=== PATIENT | female | born 1965 | race Caucasian/White ===

== ENCOUNTER 2017-12-12 00:36 | Emergency (ER) | payer MEDICAID, OTHER ==
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
[2017-12-12 02:14] VITALS: BP 137/90
== END 2017-12-12 02:14 | disposition home or self-care (01) ==
DX: F43.10 Post-traumatic stress disorder, unspecified (principal); G47.00 Insomnia, unspecified; F41.9 Anxiety disorder, unspecified; F32.9 Major depressive disorder, single episode, unspecified

== ENCOUNTER 2018-01-19 22:29 | Emergency (ER) | payer MEDICAID, OTHER ==
--- NOTE | 2018-01-19 23:01 | EDPHY ---
H & P Stated Complaint: mental health eval no SI or HI "feeling hopeless" and PTSD Source: Patient Exam Limitations: No limitations - Personal History LMP (Females 10-55): IUD In Place Current Tetanus/Diphtheria Vaccine: Yes Current Tetanus Diphtheria and Acellular Pertussis (TDAP): Yes Tetanus Vaccine Date: <10 years - Medical/Surgical History Hx Asthma: Yes Hx Chronic Respiratory Disease: No Hx Diabetes: No Hx Cardiac Disease: No Hx Renal Disease: No Hx Cirrhosis: No Hx Alcoholism: No Hx HIV/AIDS: No Hx Splenectomy or Spleen Trauma: No Other PMH: PTSD, anxiety, depression, stress asthma, - Social History Smoking Status: Never smoked Time Seen by Provider: 01/19/18 22:44 HPI/ROS: HPI: This is a 52-year-old female who presents with Chief Complaint: mental health eval no SI or HI "feeling hopeless" and PTSD Location: psych Quality: Hopeless Duration: 1 week Signs and Symptoms: no auditory hallucinations, no visual hallucinations, no suicidal ideation with a plan, no homicidal ideation, none paranoia Timing: acute on chronic Severity: Severe Context: Patient has a history of PTSD, severe generalized anxiety disorder, major depression presents voluntarily to the emergency room with complaints of severe debilitating anxiety, posttraumatic stress disorder and feeling hopeless. Patient spent 1 month in [facility] for daily counseling. She was discharged 1 week ago and saw her therapist the next day. Therapist did some regression work that the patient feels made her go back to [facility] [place]. Patient is unable to sleep in her house and is sleeping in her car due to extreme anxiety, does not feel safe to be alone or in her home , is unable to function and perform daily activities. IUD in place. Patient has been to respite care to times. Spoke with Jesse from [facility] who believes that she is no longer a candidate for respite care and needs inpatient treatment. Modifying Factors: Taking Wellbutrin, trazodone, Ativan Comment: ROS: A comprehensive 10 system review of systems is otherwise negative aside from elements mentioned in the history of present illness. MEDICAL/SURGICAL/SOCIAL HISTORY: Medical history: PTSD, anxiety, depression, stress asthma Surgical history: Denies Social history: Nonsmoker. Denies drug and alcohol use. Family history noncontributory. CONSTITUTIONAL: Extremely anxious, polite and cooperative, awake and alert, no obvious distress HEENT: Atraumatic and normocephalic, PERRL, EOMI. Nares patent; no rhinorrhea; no nasal mucosal edema. Tympanic membranes clear. Oropharynx clear, no exudate and moist pink mucosa. Airway patent. No lymphadenopathy. No meningismus. Cardiovascular: Normal S1/S2, tachycardia, regular rhythm, without murmur rub or gallop. PULMONARY/CHEST: Symmetrical and nontender. Clear to auscultation bilaterally. Good air movement. No accessory muscle usage. ABDOMEN: Soft, nondistended, nontender, no rebound, no guarding, no peritoneal signs, no masses or organomegaly. No CVAT. EXTREMITIES: 2/2 pulses, strength 5/5, no deformities, no clubbing, no cyanosis or edema. NEUROLOGICAL: no focal neuro deficits. GCS 15. SKIN: Warm and dry, no erythema. no rash. Good capillary refill. PSYCH: Fair eye contact, + flight of ideas, disorganized thought process, fair insight and judgment, no auditory hallucinations, no visual hallucinations , no suicidal ideation with a plan, no homicidal ideation, none paranoia ([place]) Constitutional: Initial Vital Signs Temperature (C) 36.6 C 01/19/18 22:34 Heart Rate 109 H 01/19/18 22:34 Respiratory Rate 16 01/19/18 22:34 Blood Pressure 126/87 H 01/19/18 22:34 O2 Sat (%) 92 01/19/18 22:34 O2 Delivery Mode Room Air Allergies/Adverse Reactions: No Known Allergies Allergy (Verified 01/19/18 22:38) Home Medications: Medication Instructions Recorded LORAZEPAM 12/12/17 Sertraline HCl 12/12/17 buPROPion 12/12/17 traZODone 12/12/17 Acyclovir 01/19/18 Estradiol 01/19/18 Optichamber Olya 01/19/18 Prazosin HCl 01/19/18 Proair Hfa 01/19/18 QUEtiapine FUMARATE 01/19/18 ZOLPIDEM TARTRATE 01/19/18 Medical Decision Making ED Course/Re-evaluation: Vital signs reviewed and show mild tachycardia upon arrival. Called to [facility]. They believe that patient is gravely disabled and needs to be have inpatient psychiatric hospitalization. Patient is currently calm and cooperative. M1 hold placed for patient being gravely disabled. Labs and UDS ordered. Home medications ordered. 0000: Labs reviewed and grossly unremarkable. Urine drug screen negative. Ethanol negative. 0010: End of shift. Signed over to Dr. Bruno pending mental health evaluation and final disposition. This patient was seen under the supervision of my secondary supervising physician. I evaluated care for this patient independently. Discussed this patient with Dr. Bruno. (Callie Garcia) 0700: Signed over at shift change to Dr. Lee. Patient on M1 home. Extensive history of PTSD. Depression anxiety. Needs evaluation this morning. (Alexey Bruno) 0 700: Patient is signed out to me at change of shift by Dr. Bruno. The patient is awaiting evaluation. Patient is stable. 1010: I spoke with [facility]. They completed their evaluation. They did not feel the patient was gravely disabled. They felt the patient's hold be lifted and she could be discharged. They arrange close follow-up. Patient felt comfortable with this plan. (Jocelyn Coughlin) Differential Diagnosis: Differential diagnosis includes but is not limited to posttraumatic stress disorder, severe generalized anxiety disorder, major depression. (Callie Garcia) - Data Points Laboratory Results: Laboratory Results 01/19/18 23:43 01/19/18 23:43 01/19/18 01/19/18 01/19/18 23:45 23:43 23:43 WBC RBC Hgb Hct MCV MCH MCHC RDW Plt Count MPV Neut % (Auto) Lymph % (Auto) [place] % (Auto) Eos % (Auto) Baso % (Auto) Nucleat RBC Rel Count Absolute Neuts (auto) Absolute Lymphs (auto) Absolute Monos (auto) Absolute Eos (auto) Absolute Basos (auto) Absolute Nucleated RBC Immature Gran % Immature Gran # Sodium 137 mEq/L mEq/L (135-145) Potassium 4.0 mEq/L mEq/L (3.3-5.0) Chloride 103 mEq/L mEq/L (97-110) Carbon Dioxide 22 mEq/l mEq/l (22-31) Anion Gap 12 mEq/L mEq/L (6-14) BUN 12 mg/dL mg/dL (7-23) Creatinine 0.9 mg/dL mg/dL (0.6-1.0) Estimated GFR > 60 Glucose 111 mg/dL H mg/dL (70-100) Calcium 9.8 mg/dL mg/dL (8.5-10.4) Beta HCG, Qual NEGATIVE Urine Opiates Screen NEGATIVE (NEGATIVE) Urine Barbiturates NEGATIVE (NEGATIVE) Ur Phencyclidine Scrn NEGATIVE (NEGATIVE) Ur Amphetamine Screen NEGATIVE (NEGATIVE) U Benzodiazepines Scrn NEGATIVE (NEGATIVE) Urine Cocaine Screen NEGATIVE (NEGATIVE) U Marijuana (THC) Screen NEGATIVE (NEGATIVE) Ethyl Alcohol < 10 mg/dL mg/dL (0-10) 01/19/18 23:43 WBC 10.21 10^3/uL H 10^3/uL (3.80-9.50) RBC 4.74 10^6/uL 10^6/uL (4.18-5.33) Hgb 13.9 g/dL g/dL (12.6-16.3) Hct 42.2 % % (38.0-47.0) MCV 89.0 fL fL (81.5-99.8) MCH 29.3 pg pg (27.9-34.1) MCHC 32.9 g/dL g/dL (32.4-36.7) RDW 13.8 % % (11.5-15.2) Plt Count 302 10^3/uL 10^3/uL (150-400) MPV 9.3 fL fL (8.7-11.7) Neut % (Auto) 65.5 % % (39.3-74.2) Lymph % (Auto) 22.6 % % (15.0-45.0) [place] % (Auto) 8.9 % % (4.5-13.0) Eos % (Auto) 2.3 % % (0.6-7.6) Baso % (Auto) 0.4 % % (0.3-1.7) Nucleat RBC Rel Count 0.0 % % (0.0-0.2) Absolute Neuts (auto) 6.69 10^3/uL H 10^3/uL (1.70-6.50) Absolute Lymphs (auto) 2.31 10^3/uL 10^3/uL (1.00-3.00) Absolute Monos (auto) 0.91 10^3/uL H 10^3/uL (0.30-0.80) Absolute Eos (auto) 0.23 10^3/uL 10^3/uL (0.03-0.40) Absolute Basos (auto) 0.04 10^3/uL 10^3/uL (0.02-0.10) Absolute Nucleated RBC 0.00 10^3/uL 10^3/uL (0-0.01) Immature Gran % 0.3 % % (0.0-1.1) Immature Gran # 0.03 10^3/uL 10^3/uL (0.00-0.10) Sodium Potassium Chloride Carbon Dioxide Anion Gap BUN Creatinine Estimated GFR Glucose Calcium Beta HCG, Qual Urine Opiates Screen Urine Barbiturates Ur Phencyclidine Scrn Ur Amphetamine Screen U Benzodiazepines Scrn Urine Cocaine Screen U Marijuana (THC) Screen Ethyl Alcohol Medications Given: Gabapentin (Neurontin) 600 mg PO TID ANIA Stop: 07/19/18 00:14 Last Admin: 01/20/18 00:16 Dose: 600 mg Prazosin HCl (Minipress) 10 mg PO BID ANIA Stop: 07/18/18 23:29 Last Admin: 01/20/18 00:16 Dose: 10 mg Zolpidem Tartrate (Ambien) 10 mg PO HS PRN PRN Reason: Sleep/Insomnia Stop: 07/18/18 23:27 Last Admin: 01/20/18 00:16 Dose: 10 mg Discontinued Medications Quetiapine Fumarate (Seroquel) 200 mg PO ONCE ONE Stop: 01/19/18 23:29 Last Admin: 01/20/18 00:16 Dose: 200 mg Trazodone HCl (Trazodone) 100 mg PO EDNOW ONE Stop: 01/19/18 23:46 Last Admin: 01/20/18 00:16 Dose: 100 mg Departure - Departure Disposition: Home, Routine, Self-Care Clinical Impression: PTSD (post-traumatic stress disorder), Severe anxiety with panic Depression, major, severe recurrence Qualifiers: Psychotic features: without psychotic features Qualified Code(s): F33.2 - Major depressive disorder, recurrent severe without psychotic features Condition: Fair Instructions: Post Traumatic Stress Disorder (ED), Anxiety (ED) Additional Instructions: Return with worsening symptoms or any other concerns. Referrals: Keyshawn Mccarthy MD [Primary Care Provider] - 5-7 days, call for appt.
[2018-01-19] MEDS ORDERED: ZOLPIDEM TARTRATE 5 MG TAB PO PRN (23:28)
[2018-01-19] MEDS ORDERED: QUEtiapine FUMARATE 200 MG TAB PO ONE (23:28)
[2018-01-19] MEDS ORDERED: traZODone 100 MG TAB PO ONE (23:45)
[2018-01-19 23:51] LABS: PLATELET COUNT 302 10^3/uL (150-400)
[2018-01-20] MEDS: GABAPENTIN 300 MG CAP PO SCH ×2 (00:16→10:25)
[2018-01-20] MEDS: PRAZOSIN HCL 5 MG CAP PO SCH ×2 (00:16→10:26)
[2018-01-20] MEDS ORDERED: ZOLPIDEM TARTRATE 5 MG TAB PO PRN (00:30)
[2018-01-20 10:51] VITALS: BP 120/74
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
--- NOTE | 2018-01-20 12:27 | ASMTTCLDSP ---
TLC Discharge Disposition Disposition: Answers: Discharge If Answers: Yes DISCHARGED: Patient/family given suicide hotline info & SAMHSA brochure? Disposition Notes: Notes: Pt stated commitment or ability to keep self safe, denied thoughts of self harm or harm to others. Pt expressed a desire to f/u with [facility] therapist appointment today at 1 pm with Teodora Michael. Pt was given local hotline information and SAMHSA brochure After an Attempt. 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 Discharge Concerns/Recommendations: Notes: In consultation with [facility] ED physician, Jocelyn Coughlin MD, Dr. Coughlin concurred that pt does not appear to meet 27-65 criteria requiring psychiatric hospitalization as pt does not appear to be an imminent risk of harm to self/others/gravely disabled due to a mental illness condition. Dr. Coughlin provided verbal order read back vacating M1 hold at 1010 hrs. Was patient given the Answers: Not applicable Inpatient Behavioral Health Prohibited Belongings List while in the ED? Psychiatrist vacating M1 Jocelyn Coughlin MD Hold: Date and time M1 hold 01/20/2018 10:10 AM vacated (time format is hh:mm): Type of Hold: Answers: M1/72-hour Hold Hold initiated by: Answers: ED Physician Date Signed: 01/20/2018 12:26 PM Electronically Signed By:Urbano Rosenberg
== END 2018-01-20 10:52 | disposition home or self-care (01) ==
DX: F33.2 Major depressive disorder, recurrent severe without psychotic features (principal); F41.0 Panic disorder [episodic paroxysmal anxiety]; F43.10 Post-traumatic stress disorder, unspecified
CPT/HCPCS: 80305; G0480

== ENCOUNTER 2018-03-11 12:26 | Emergency (ER) | payer MEDICAID ==
[2018-03-11 12:32] VITALS: BP 145/87
--- NOTE | 2018-03-11 12:53 | EDPHY ---
H & P Stated Complaint: Wants MH eval;in between therapists;denies SI/HI;feels "ungrounded" Time Seen by Provider: 03/11/18 12:36 HPI/ROS: CHIEF COMPLAINT: "I think I need a mental health evaluation" HISTORY OF PRESENT ILLNESS: 52-year-old homeless female, living her vehicle, history of PTSD, drove herself to the ER requesting mental health evaluation. Denies suicidal homicidal ideation. Notes increasing anxiety specifically after she wakes in the morning. Difficulty sleeping. No self-injurious behavior. Since tissue benefit from inpatient therapy. Feels that she is able to care for self. PHYSICAL EXAM (Prior to examination, patient consented to physical exam, hands were washed and my usual and customary physical exam procedures followed) 1) GENERAL: Well-developed, well-nourished, alert and oriented. Appears to be in no acute distress. Smiling, calm, cooperative 2) HEAD: Normocephalic 3) HEENT: sclera anicteric 4) LUNGS: Breathing comfortably. - Personal History LMP (Females 10-55): Post Menopausal Current Tetanus Diphtheria and Acellular Pertussis (TDAP): Yes Tetanus Vaccine Date: <10 years - Medical/Surgical History Hx Asthma: Yes Hx Chronic Respiratory Disease: No Hx Diabetes: No Hx Cardiac Disease: No Hx Renal Disease: No Hx Cirrhosis: No Hx Alcoholism: No Hx HIV/AIDS: No Hx Splenectomy or Spleen Trauma: No Other PMH: PTSD, anxiety, depression, stress asthma, - Social History Smoking Status: Never smoked Constitutional: Initial Vital Signs Temperature (C) 36.6 C 03/11/18 12:27 Heart Rate 92 03/11/18 12:27 Respiratory Rate 18 03/11/18 12:27 Blood Pressure 145/87 H 03/11/18 12:27 O2 Sat (%) 96 03/11/18 12:27 O2 Delivery Mode Room Air Allergies/Adverse Reactions: No Known Allergies Allergy (Verified 03/11/18 12:27) Home Medications: Medication Instructions Recorded LORAZEPAM 12/12/17 Sertraline HCl 12/12/17 buPROPion 12/12/17 traZODone 12/12/17 Acyclovir 01/19/18 Estradiol 01/19/18 Prazosin HCl 01/19/18 QUEtiapine FUMARATE 01/19/18 ZOLPIDEM TARTRATE 01/19/18 Medical Decision Making ED Course/Re-evaluation: 12:51 p.m.: At this time I do not think patient meets criteria for an M1 hold, she is not endorse suicidal or homicidal ideation. States that she would like a place that she can sleep and get counseling. Notes they trouble with sleeping in her car. I have recommend patient go to the mental health crisis Center [address]. She drove herself to the ER and feels comfortable driving herself to this location. Given my usual and customary psychiatric precautions instructions. Care of patient under supervision of secondary supervising physician Dr Evans Departure - Departure Disposition: Home, Routine, Self-Care Clinical Impression: Homeless single person, Post traumatic stress disorder (PTSD) Condition: Good Instructions: Post Traumatic Stress Disorder (ED) Additional Instructions: Return to the ER immediately if you experience thoughts of hurting yourself, thoughts of hurting other people, thoughts of killing other people or killing yourself. Referrals: [facility] [Clinic] - 03/11/18 1:00 pm (correct address is: [address] [place] [address])
== END 2018-03-11 13:00 | disposition home or self-care (01) ==
DX: F43.10 Post-traumatic stress disorder, unspecified (principal); F32.9 Major depressive disorder, single episode, unspecified; F41.9 Anxiety disorder, unspecified; Z59.0 Homelessness

== ENCOUNTER 2018-03-19 00:22 | Inpatient (IN) | payer MEDICAID, OTHER ==
--- NOTE | 2018-03-19 00:49 | EDPHY ---
H & P Stated Complaint: increased anxiety/depression, not wanting to live - Personal History Current Tetanus/Diphtheria Vaccine: Yes Current Tetanus Diphtheria and Acellular Pertussis (TDAP): Yes Tetanus Vaccine Date: <10 years - Medical/Surgical History Hx Asthma: Yes Hx Chronic Respiratory Disease: No Hx Diabetes: No Hx Cardiac Disease: No Hx Renal Disease: No Hx Cirrhosis: No Hx Alcoholism: No Hx HIV/AIDS: No Hx Splenectomy or Spleen Trauma: No Other PMH: PTSD, anxiety, depression, stress asthma, - Social History Smoking Status: Never smoked Time Seen by Provider: 03/19/18 00:31 HPI/ROS: Chief Complaint: PTSD, hopeless HPI: 52-year-old woman with a history of anxiety, depression, PTSD. Patient is feeling increasingly hopeless. She is not want live any longer. She does not have active suicidal ideation or plan. She was recently seen at crisis Center and they did not feel that she was suitable for inpatient admission. Patient states she is feeling worse. She has been compliant with medications. Denies any hallucinations. She has been staying at her home but has a lot of triggers there for PTSD. She lives alone. She feels unsafe but does not have any active plans at this time. ROS: 10 systems were reviewed and were negative except those elements noted in the HPI. PMH: PTSD, depression, chronic back pain Social History: No smoking, no alcohol, no recreational drug use Family History: non-contributory Physical Exam: Gen: Awake, Alert, No Distress HEENT: Nose: no rhinorrhea Eyes: PERRLA, EOMI Mouth: Moist mucosa Neck: Supple, no JVD Chest: nontender, lungs clear to auscultation Heart: S1, S2 normal, no murmur Abd: Soft, non-tender, no guarding Back: no CVA tenderness, no midline tenderness Ext: no edema, non-tender Skin: no rash Neuro: CN II-XII intact, Sensation grossly intact, Strength 5/5 in bilateral upper and lower extremities (Dat Cardenas) Constitutional: Initial Vital Signs Temperature (C) 36.4 C 03/19/18 00:27 Heart Rate 82 03/19/18 00:27 Respiratory Rate 20 03/19/18 00:27 Blood Pressure 129/86 H 03/19/18 00:27 O2 Sat (%) 93 03/19/18 00:27 O2 Delivery Mode Room Air Allergies/Adverse Reactions: No Known Allergies Allergy (Verified 03/19/18 00:25) Home Medications: Medication Instructions Recorded LORAZEPAM 12/12/17 Sertraline HCl 12/12/17 buPROPion 12/12/17 traZODone 12/12/17 Acyclovir 01/19/18 Estradiol 01/19/18 Prazosin HCl 01/19/18 QUEtiapine FUMARATE 01/19/18 ZOLPIDEM TARTRATE 01/19/18 Medical Decision Making ED Course/Re-evaluation: 52-year-old female with a history of PTSD and depression presenting with concerns about her safety although she is not actively suicidal. [facility] but feels that her symptoms are worsening and is concerned about being home. She is requesting mental health evaluation. Will medically clear and plan for evaluation in the morning. Patient has been medically cleared. Patient is signed out to Dr. Evans pending mental health evaluation. (Dat Cardenas) Other Provider: Patient signed out to ct at 0700 pending mental health evaluation. Patient is not on M1 hold at this time secondary to not meeting criteria. 1112: Patient has been accepted for admission to [facility]. (Sathya Evans) - Data Points Laboratory Results: Laboratory Results 03/19/18 01:15 03/19/18 01:15 03/19/18 03/19/18 03/19/18 01:21 01:15 01:15 WBC RBC Hgb Hct MCV MCH MCHC RDW Plt Count MPV Neut % (Auto) Lymph % (Auto) [place] % (Auto) Eos % (Auto) Baso % (Auto) Nucleat RBC Rel Count Absolute Neuts (auto) Absolute Lymphs (auto) Absolute Monos (auto) Absolute Eos (auto) Absolute Basos (auto) Absolute Nucleated RBC Immature Gran % Immature Gran # Sodium 138 mEq/L mEq/L (135-145) Potassium 4.3 mEq/L mEq/L (3.5-5.2) Chloride 105 mEq/L mEq/L (97-110) Carbon Dioxide 22 mEq/l mEq/l (22-31) Anion Gap 11 mEq/L mEq/L (6-14) BUN 17 mg/dL mg/dL (7-23) Creatinine 0.8 mg/dL mg/dL (0.6-1.0) Estimated GFR > 60 Glucose 91 mg/dL mg/dL (70-100) Calcium 9.5 mg/dL mg/dL (8.5-10.4) Beta HCG, Qual NEGATIVE Urine Opiates Screen NEGATIVE (NEGATIVE) Urine Barbiturates NEGATIVE (NEGATIVE) Ur Phencyclidine Scrn NEGATIVE (NEGATIVE) Ur Amphetamine Screen NEGATIVE (NEGATIVE) U Benzodiazepines Scrn NON-NEGATIVE H (NEGATIVE) Urine Cocaine Screen NEGATIVE (NEGATIVE) U Marijuana (THC) Screen NEGATIVE (NEGATIVE) Ethyl Alcohol < 10 mg/dL mg/dL (0-10) 03/19/18 01:15 WBC 12.16 10^3/uL H 10^3/uL (3.80-9.50) RBC 5.00 10^6/uL 10^6/uL (4.18-5.33) Hgb 15.0 g/dL g/dL (12.6-16.3) Hct 45.7 % % (38.0-47.0) MCV 91.4 fL fL (81.5-99.8) MCH 30.0 pg pg (27.9-34.1) MCHC 32.8 g/dL g/dL (32.4-36.7) RDW 13.5 % % (11.5-15.2) Plt Count 305 10^3/uL 10^3/uL (150-400) MPV 9.3 fL fL (8.7-11.7) Neut % (Auto) 59.8 % % (39.3-74.2) Lymph % (Auto) 28.4 % % (15.0-45.0) [place] % (Auto) 8.1 % % (4.5-13.0) Eos % (Auto) 2.6 % % (0.6-7.6) Baso % (Auto) 0.7 % % (0.3-1.7) Nucleat RBC Rel Count 0.0 % % (0.0-0.2) Absolute Neuts (auto) 7.28 10^3/uL H 10^3/uL (1.70-6.50) Absolute Lymphs (auto) 3.45 10^3/uL H 10^3/uL (1.00-3.00) Absolute Monos (auto) 0.98 10^3/uL H 10^3/uL (0.30-0.80) Absolute Eos (auto) 0.32 10^3/uL 10^3/uL (0.03-0.40) Absolute Basos (auto) 0.08 10^3/uL 10^3/uL (0.02-0.10) Absolute Nucleated RBC 0.00 10^3/uL 10^3/uL (0-0.01) Immature Gran % 0.4 % % (0.0-1.1) Immature Gran # 0.05 10^3/uL 10^3/uL (0.00-0.10) Sodium Potassium Chloride Carbon Dioxide Anion Gap BUN Creatinine Estimated GFR Glucose Calcium Beta HCG, Qual Urine Opiates Screen Urine Barbiturates Ur Phencyclidine Scrn Ur Amphetamine Screen U Benzodiazepines Scrn Urine Cocaine Screen U Marijuana (THC) Screen Ethyl Alcohol Departure - Departure Disposition: [facility] IP Clinical Impression: Suicidal ideation Condition: Fair Referrals: Keyshawn Mccarthy MD [Primary Care Provider] - As per Instructions
[2018-03-19] MEDS ORDERED: SKIN ADHESIVE (DERMABOND) 1 EACH TP ONE (01:13)
[2018-03-19 01:26] LABS: PLATELET COUNT 305 10^3/uL (150-400)
--- NOTE | 2018-03-19 12:28 | PDCONSULT ---
Field Staff Note: MEDICINE H&P Chief Complaint: hopelessness History of Present Illness: 52yo F with depression, anxiety, PTSD presents with feelings of increasing hopelessness. She does not have any active suicidal ideation or plan but her mood has been very poor. She has been taking her anti- depressants. She was recently seen at the Crisis Center but they didn't feel that she warranted inpatient admission. She feels unsafe. She was not placed in an M1 hold but voluntarily agrees to admission to [facility]. She reports occasionally using her inhaler for her asthma but no shortness of breath, cough , or fevers recently. Otherwise denies any localizing infectious symptoms. Past Medical History: as stated above in addition to uterine fibroids, osteoarthritis (knees, lower back), asthma Past Surgical History: partial hysterectomy Medications: Please refer to EMR. Allergies: NKDA Social History: Denies etoh, tobacco, illicits. Lives alone in [place]. Family History: non-pertinent ROS: 12 point ROS negative otherwise than stated in HPI Vitals: Reviewed, afebrile and normotensive. Physical Exam: Gen - no distress; HEENT - anicteric sclera; Neck - no adenopathy ; CV - rrr without m/r/g, no leg edema; Lungs - ctab, no wheezes; Abd - soft, nt , nd; MSK - no joint swelling or redness; Neuro - no focal deficits; Psych - pleasant Labs: Reviewed, WBC 12k, BMP normal, beta HCG negative, utox + benzos, etoh negative Assessment/Plan: 1. Depression, anxiety, PTSD: Being admitted to [facility] for inpatient psychiatric management. She is not on an M1 hold as this is voluntary. 2. Asthma: No acute flare. This is mild and intermittent at baseline. Would continue proair inhaler QID PRN. Will also make available mucinex PRN. 3. Osteoarthritis: Not on opioids. Recommend tylenol or ibuprofen PRN. Dispo: Admit to inpatient psych. Please page internal medicine with any additional questions or concerns.
[2018-03-19] MEDS ORDERED: guaiFENesin 600 MG TAB.ER PO PRN ×2 (12:31→14:57)
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
--- NOTE | 2018-03-19 12:57 | ASMTTCLDSP ---
[facility] Discharge Disposition Disposition: Answers: Admit Discharge Concerns/Recommendations: Notes: In consultation with [facility] ED physician,Dr Cardenas and on-call psychiatrist, Dr Frias , both concurred that Pt does appear to meet criteria for a psychiatric hospitalization due to a mental illness condition. Was patient given the Answers: Yes Inpatient [facility] Prohibited Belongings List while in the ED? For inpatient Dr Rodriguez MD admission, the following psychiatrist agreed to accept patient for admission to Behavioral Health ([facility]): Date Signed: 03/19/2018 12:57 PM Electronically Signed By:Enedina Bateman
[2018-03-19] MEDS ORDERED: OLANZapine DISINTEGR 5 MG TAB PO PRN (16:13)
[2018-03-19] MEDS ORDERED: NICOTINE POLACRILEX 2 MG GUM B PRN (16:13)
[2018-03-19] MEDS ORDERED: MAGNESIUM HYDROXIDE 30 ML UDCUP PO PRN (16:13)
[2018-03-19] MEDS ORDERED: LORazepam 1 MG TAB PO PRN (16:13)
[2018-03-19] MEDS ORDERED: ACETAMINOPHEN 325 MG TAB PO PRN (16:13)
[2018-03-19] MEDS ORDERED: MAG HYDROX/AL HYDROX/SIMETH 30 ML UDCUP PO PRN (16:13)
[2018-03-19] MEDS ORDERED: IBUPROFEN 200 MG TAB PO PRN (16:18)
[2018-03-19] MEDS ORDERED: hydrOXYzine HCL 25 MG TAB PO PRN (16:19)
[2018-03-19] MEDS: GABAPENTIN 300 MG CAP PO SCH (21:56)
[2018-03-19] MEDS: PRAZOSIN HCL 5 MG CAP PO SCH (21:56)
[2018-03-19] MEDS: ZOLPIDEM TARTRATE 5 MG TAB PO PRN (21:56)
[2018-03-19] MEDS: QUEtiapine FUMARATE 100 MG TAB PO SCH (21:56)
[2018-03-19] MEDS: traZODone 100 MG TAB PO PRN (21:56)
[2018-03-20] MEDS: SERTRALINE HCL 100 MG TAB PO SCH (08:29)
[2018-03-20] MEDS: GABAPENTIN 300 MG CAP PO SCH ×3 (08:29→20:27)
[2018-03-20] MEDS: LORazepam 1 MG TAB PO PRN ×3 (09:04→23:28)
--- NOTE | 2018-03-20 09:44 | PDMN ---
Medical Necessity Medical necessity: [facility] [id number] Posttraumatic Stress Disorder, Adult: Inpatient Care, 3days: 52 yo presents w/ exacerbation of PTSD and persistent depressive disorder (dysthymia), admit to IP BEH unit
[2018-03-20] MEDS ORDERED: ACYCLOVIR 400 MG TAB PO PRN (12:54)
[2018-03-20] MEDS ORDERED: BISACODYL 5 MG EC TAB PO PRN (12:54)
[2018-03-20] MEDS ORDERED: ALBUTEROL 60 PUFFS/8 GM MDI IH PRN (13:15)
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
--- NOTE | 2018-03-20 15:51 | ASMTCMCOM ---
CM Note CM Note Notes: Pt. requested to speak with CC. Pt. stated she is upset with the weekend MD for not prescribing her medications how they were prior to her admission. Pt. stated she is also upset she is on a suicide precaution, stating "I'm not suicidal. I'm pissed". Pt. stated she has called and left a message with the Patient Back Up Scan Coordinator about the MD. Pt. stated she does not want anything about being suicidal in her chart. Pt. stated "I never actually wanted to hurt a doctor before, but I want to slap him". 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 Pt. stated she does not believe it is healthy for the MD to change her medications as he did. Date Signed: 03/20/2018 03:51 PM Electronically Signed By:Joanna Watson
[2018-03-20] MEDS: [UNRECOGNIZED DRUG - OTHER] PO SCH ×2 (15:56→17:07)
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
[2018-03-20] MEDS: traZODone 100 MG TAB PO PRN (20:26)
[2018-03-20] MEDS: ZOLPIDEM TARTRATE 5 MG TAB PO PRN (20:26)
[2018-03-20] MEDS: QUEtiapine FUMARATE 100 MG TAB PO SCH (20:27)
[2018-03-20] MEDS: PRAZOSIN HCL 5 MG CAP PO SCH (20:27)
[2018-03-21 06:43] VITALS: BP 120/65
[2018-03-21] MEDS: [UNRECOGNIZED DRUG - OTHER] PO SCH ×2 (08:52→14:15)
[2018-03-21] MEDS: GABAPENTIN 300 MG CAP PO SCH (08:53)
[2018-03-21] MEDS: SERTRALINE HCL 100 MG TAB PO SCH (08:54)
[2018-03-21] MEDS ORDERED: buPROPion XL 150 MG TAB PO SCH (09:00)
[2018-03-21] MEDS ORDERED: ESTRADIOL 1 MG TAB PO SCH (09:00)
--- NOTE | 2018-03-21 13:30 | ASMTBHDC ---
Notes Note: Notes: Pt. requested to speak with CC. Pt. stated she felt Dr. Marrufo was "very dismissive" during treatment team meeting. Pt. stated her "medications are all messed up". Pt. stated she does not feel comfortable in the area where the [facility] respite is. Pt. stated she feels most comfortable at the [facility] Respite. CC informed pt the [facility] offices are closed today and tomorrow, pt. told CC she needed to call more people to assist pt in getting into respite. Pt. stated she used to see "neeta nunes" at [facility] but Ms. nunes has since left [facility]. Pt. stated she was transferred to "[facility]" but stated she has not meet with him yet. Pt. stated "I can stay at the correction. I have done the coordinated entry", adding she does get triggered at the correction. Date Signed: 03/21/2018 01:18 PM Electronically Signed By:Joanna Watson
--- NOTE | 2018-03-21 14:47 | BDS ---
REASON FOR ADMISSION: From the ED note dated 03/19/2018, patient with a history of anxiety, depression, and PTSD presents to the emergency room feeling increasingly hopeless, not wanting to live any longer. Patient did not report suicidal ideation or plan. Patient reported feeling at home, a lot of triggers there for PTSD. Patient did report she lives alone. Patient also reported that she did not feel safe. Patient was admitted voluntarily due to being a danger to herself, was admitted for safety, crisis stabilization, and medication management. ADMISSION DIAGNOSES: 1. Major depressive disorder, recurrent episode, severe, with anxious distress. 2. Posttraumatic stress disorder. ADMISSION PHYSICAL EXAM: Patient was seen for an Internal Medicine consultation on 03/19/2018, for medical clearance for inpatient psychiatric hospitalization and treatment. Patient was medically cleared for inpatient psychiatric hospitalization and treatment. For further details, please refer to consult note dated 03/19/2018. ADMISSION LABS: 1. CBC from 03/19/2018, within normal limits, except white blood cells were elevated at 12.16, absolute neutrophils were elevated at 7.28, absolute lymphocytes were elevated at 3.45, and absolute monocytes were elevated at 0.98. 2. BMP within normal limits. 3. Hemoglobin A1c within normal limits at 5.5. 4. Liver function within normal limits. 5. Lipid panel within normal limits, except triglycerides were elevated at 238 , cholesterol was elevated at 261, cholesterol risk factor was elevated at 1.2, LDL cholesterol calculated was elevated at 156, VLDL cholesterol was elevated at 48, non-HDL cholesterol was elevated at 204, cholesterol/HDL ratio was elevated at 4.58. 6. TSH from 03/19/2018, was elevated at 5.280. 7. Beta hCG qualitative test from 03/19/2018, was negative. 8. Toxicology screen from 03/19/2018, was non-negative for benzodiazepines, negative for all other substances screened, negative for ethyl alcohol. MAJOR PROCEDURES/TESTS: None. HOSPITAL COURSE: The most prominent symptoms and behaviors while the patient was here were reports of severe depression and anxiety. Treatment modalities utilized were milieu and group therapy. Patient's home medications were continued during the course of the patient's hospitalization. Patient reported to this LAB SUPPORT TECHNICIAN that several medications were at too low of doses and patient requested her medications to be continued as they were prior to her admission, and patient reports she plans to follow up with her outpatient psychiatric provider for ongoing medication evaluation and monitoring. Patient has improved considerably with no signs of psychiatric symptoms and no psychiatric symptoms expressed at time of discharge. Patient reports she has improved since admission, states to be in stable condition, feels safe to discharge, and she contracts for safety. Patient's response to treatment was good. There were no adverse or unexpected results of treatment. The patient was safe throughout her stay, active in treatment, engaged in groups, and was appropriate with staff and other patients. Patient met with the treatment team prior to discharge to assess readiness to discharge and review discharge plan. The treatment team consensus is the patient is in stable condition, has a safe discharge plan, and is ready to discharge today. CONDITION AT DISCHARGE: Patient is in stable condition and is no longer a danger to self or others, and is not gravely disabled due to mental illness. Patient is no longer in need of inpatient level of care, and can be safely and effectively treated within the community. The patients level of risk at time of discharge is low. MSE: The patient is casually dressed and with good hygiene , and looks stated age. Patient is sitting, posture is upright, and position is relaxed. Patient appears awake, alert, and responds appropriately and reasonably during interview. Patient is engaged, relates well to interviewer, and emotional facial expression is appropriate to situation and changes appropriately with topic. Patient is cooperative, makes comfortable eye contact , and movements are voluntary, deliberate, coordinated, and smooth and even with no inappropriate movements. Patient makes laryngeal sounds effortlessly and shares conversation appropriately; pace of conversation is appropriate, and stream of talking is fluent; articulation is clear and understandable; word choice is effortless and appropriate for education level; completes sentences, occasionally pausing to think; rate and volume are appropriate for interview and setting. Patient reports mood as euthymic. Patients affect is stable with full variable range, congruent with mood, and appropriate to speech and circumstances. Patient has linear and logical thinking, with no loose associations, tangential thought, thought blocking, concrete thinking, or any other signs of formal thought disorder. Patient denies suicidal and homicidal ideation, and denies hallucinations and delusions. Patient appears to be a reliable historian with sound judgement and good insight into current condition. Patient has no apparent dysfunction in recent or remote memory noted , and no evidence of gross cognitive dysfunction noted at any point during the interview. DISCHARGE DIAGNOSES: 1. Major depressive disorder, recurrent episode, severe, with anxious distress. 2. Posttraumatic stress disorder. CURRENT MEDICATIONS: After reviewing options, risks, and benefits with the patient, patient requests and agrees to continue the following medications with plan to follow up with her outpatient provider for ongoing medication evaluation and management. These medications are reviewed with the patient at time of discharge to ensure accuracy and patient understanding. Patient states she has prescriptions for the following medications, and does not need any medication prescriptions at the time of discharge. Patient reports she plans to continue these medications as prescribed by her outpatient provider. 1. Albuterol 2 puffs IH q.4 hours p.r.n. 2. Mucinex 600 mg tablet 1200 mg p.o. b.i.d. p.r.n. 3. Trazodone 200 mg p.o. q.h.s. 4. Zoloft 200 mg p.o. daily. 5. Ativan 1 mg p.o. b.i.d. p.r.n. 6. Wellbutrin XL 150 mg p.o. daily. 7. Ambien CR 12.5 mg p.o. q.h.s. 8. Seroquel 100 mg p.o. daily. 9. Prazosin 5 mg p.o. daily. 10. Estradiol 2 mg p.o. daily. 11. Acyclovir 400 mg p.o. b.i.d. 12. Dulcolax 5 mg p.o. daily p.r.n. 13. Prazosin 10 mg p.o. q.h.s. 14. Gabapentin 1200 mg p.o. q.h.s. 15. Gabapentin 300 mg p.o. daily. 16. Seroquel 200 mg p.o. q.h.s. 17. Gabapentin 600 mg p.o. daily in the a.m. 18. Albuterol sulfate 2 puffs IH q.i.d. p.r.n. 19. Trazodone 100 mg p.o. daily. DISPOSITION: Patient left hospital independently and voluntarily and plans to return to her apartment. FOLLOWUP: retail event coordinator reports the appropriate outpatient follow-up services have been established and outpatient appointments have been scheduled. The patient received written instructions with times and dates of outpatient follow-up appointments. The following follow-up recommendations were provided to the patient at discharge: Continue psychotropic medications as prescribed and attend appointments as scheduled. Report any side effects to a psychiatric outpatient provider, a primary care provider, or other health aged or disabled care worker. Address any questions or problems concerning the psychotropic medications with a psychiatric outpatient provider, a primary care provider, or other health aged or disabled care worker. Contact [facility] or [facility], or go to the nearest emergency room, if you are ever a danger to yourself/others, or unable to care for yourself. As soon as possible, establish a routine medication management treatment with a psychiatric provider, establish routine therapy appointments, and follow-up with a primary care provider. LEGAL COURSE: Patient was admitted voluntarily, remained voluntary throughout her hospitalization, and discharged today independently and voluntarily. ATTITUDE AT TIME OF DISCHARGE: The patients attitude was positive at time of discharge, and patient reports looking forward to discharging today. The patient reports she feels safe to discharge, is no longer a danger to herself or others, is in stable condition, and contracts for safety. Patient states she will continue medications as prescribed, and establish medication management treatment with an outpatient provider after discharge. Patient reports she understands the information that has been provided to her, and she understands, accepts, and agrees to psychotropic medications. Patient describes internal protective factors as the coping skills she has learned while hospitalized here, and she plans to continue to practice these coping skills after discharge. LABORATORY AND STUDIES: There were no pending labs or studies at time of discharge. ADVANCE DIRECTIVES: There were no advance directives on file, and patient was full code during this hospitalization. The following psychotropic medication treatment informed consent and recommendations were provided to the patient at time of discharge. Patient reports she understands, accepts, and agrees to the information that has been provided. PSYCHOTROPIC MEDICATION TREATMENT INFORMED CONSENT and RECOMMENDATIONS: Review nature of condition, diagnosis, and prognosis. Review nature and purpose of psychotropic medication treatment. Review type of psychotropic medications being prescribed. Review risk and benefits of psychotropic medication treatment. Review probable length of time will need to take medications. Review risk and benefits of not undergoing psychotropic medication treatment. Review alternative treatments to psychotropic medications. Review psychotropic medications contraindications, side effects, and importance of reporting any side effects to a psychiatric provider, primary care provider, or other health aged or disabled care worker. Review importance of her asking a psychiatric provider or primary care provider any questions or problems concerning the psychotropic medications. Review importance of reporting to a psychiatric provider, primary care provider, or other health aged or disabled care worker if she plans to or becomes . Review safety plan and the importance to contact [facility] or [facility] , or go to the nearest emergency room, if ever a danger to yourself/others, or unable to care for yourself. Recommend upon discharge to establish routine medication management treatment with a psychiatric provider, establish routine therapy appointments, and follow-up with a primary care provider. Verify patient understands, accepts, and agrees to the information that has been provided. /[id number]/[id number]
== END 2018-03-21 14:13 | disposition home or self-care (01) | DRG 885 ==
LOC: EEVIPCON 00:22 → BBEH 14:50
PROVIDERS: ADMIT Psychiatry & Neurology Psychiatry; ATTEND Psychiatry & Neurology Psychiatry
DX: F33.3 Major depressive disorder, recurrent, severe with psychotic symptoms (principal); J45.909 Unspecified asthma, uncomplicated; M19.90 Unspecified osteoarthritis, unspecified site
CPT/HCPCS: 80305; G0480